=== PATIENT | male | born 1975 | race Caucasian/White ===

== ENCOUNTER 2025-08-21 17:33 | Emergency (ER) | payer BC ==
[~2025-08-21] VITALS: Ht 180.3 cm; Wt 86.1 kg
[2025-08-21 17:49] VITALS: BP 123/84; PULSE 82; RESP 18; TEMP 96.9; O2SAT 98
[2025-08-21] MEDS ORDERED: AMOX-117 PO (17:54)
--- NOTE | 2025-08-21 17:55 | Physician Documentation ---
History of Present Illness ~ Chief Complaint: Sore Throat Stated Complaint: SORE THROAT Time Seen by MD: 17:51 Source: patient Mode of Arrival: POV Exam Limitations: no limitations HPI 50-year-old male with sore throat x2 days worsening daughter just tested positive for strep throat. Patient denies fever difficulty breathing or swal lowing Medication Reconciliation Allergies: Coded Allergies: No Known Allergies (Unverified , 08/21/25) Scheduled Amox Tr/Potassium Clavulanate (Augmentin 875-125 Tablet), 1 TAB PO Q12H Past Medical History Past Medical History: No Pertinent History Review of Systems All Other Systems at this time: Reviewed and Negative ENT: Reports: see HPI Physical Exam Vital Signs: RN Vital Signs have been reviewed: Yes, Temperature: 96.9, Source: Temporal, Heart Rate: 82, Respiratory Rate: 18, BP: 123/84, Pulse Oximetry: 98, Weight: 86.100 Oxygen Flow Rate: 0 General Appearance: alert, WD/WN, no apparent distress Nose: normal inspection Mouth/Throat: normal mouth inspection, erythema, tonsillar exudate, tonsillar erythema; No: trismus, uvula swelling Teeth/Gums: normal inspection; No: gingiva redness, gingiva swelling Face: normal inspection; No: tender Head: normal inspection Neck: lymphadenopathy (R), lymphadenopathy (L) Progress Results/Orders Results/Orders Vital Signs 08/21/25 17:49 Temp 96.9 Pulse 82 Resp 18 B/P (MAP) 123/84 Pulse Ox 98 O2 Flow Rate 0 Medical Decision Making Findings Patient has been in close contact with daughter that is tested positive strep exudate noted +1 +2 tonsillar swelling with lymphadenopathy. No cough antibiotics prescribed for strep throat follow up with primary care Departure Time of Disposition: 17:53 Disposition: 01 HOME / SELF CARE / HOMELESS Impression: Primary Impression: Sore throat Condition: Stable Discharge Instructions: Strep Throat, Adult Additional Instructions: Take antibiotics as prescribed use Tylenol and ibuprofen as needed for [id number] pain or fevers. Follow up with primary care Referrals: NO PRIMARY CARE PROVIDER (PCP) Prescriptions Amox Tr/Potassium Clavulanate (Augmentin 875-125 Tablet) 1 Each Tablet 1 TAB PO Q12H for 10 Days, #20 TAB Prov: LUCIE COE [employer] 08/21/25 Education Educated: Patient Educated regarding: diagnosis, treatment, need for follow up Signature Scribe Signature: No scribe Attestation: The note accurately reflects work and decisions made by me.Lucie MERCEDES 08/21/25 17:54 LUCIE COE NP Aug 21, 2025 17:55
== END 2025-08-21 18:10 | disposition home or self-care (01) ==
LOC: ER 17:34
DX: J02.9 Acute pharyngitis, unspecified (principal)
CPT/HCPCS: 99283